=== PATIENT | male | born 1945 | race Caucasian/White ===

== ENCOUNTER 2017-02-17 01:20 | Inpatient (IN) | payer MEDICARE ==
[2017-02-17] VITALS (13 sets, daily range): BP systolic 121–143; BP diastolic 67–97; PULSE 16–102; TEMP 97.3–98.5
[~2017-02-17] VITALS: Ht 172.7 cm; Wt 99.6 kg
[2017-02-18 02:09] VITALS: BP 122/77; PULSE 88; TEMP 97.3
[2017-02-18 06:23] VITALS: BP 135/86; PULSE 101; TEMP 98.3
[2017-02-18 06:41] LABS: HEMATOCRIT 29.4 % (42.0-52.0); HEMOGLOBIN 9.8 g/dl (13.5-18.0)
[2017-02-18 09:40] VITALS: BP 122/83; PULSE 92; TEMP 97.9
[2017-02-18 13:41] VITALS: BP 133/79; PULSE 102
[2017-02-18 17:52] VITALS: BP 128/83; PULSE 92; TEMP 98.3
[2017-02-18 21:39] VITALS: BP 147/88; PULSE 89; TEMP 98.1
[2017-02-19 01:47] VITALS: BP 121/81; PULSE 84; TEMP 98.7
[2017-02-19 05:58] VITALS: BP 125/82; PULSE 85; TEMP 97.9
[2017-02-19 07:33] LABS: HEMATOCRIT 31.2 % (42.0-52.0); HEMOGLOBIN 10.4 g/dl (13.5-18.0)
[2017-02-19 09:27] VITALS: BP 128/84; PULSE 92; TEMP 97.6
[2017-02-19 10:15] VITALS: BP 128/84; PULSE 92; TEMP 97.6
== END 2017-02-19 11:00 | disposition swing bed (61) | DRG 921 ==
LOC: SURG 01:20 → JCC 02:21
PROVIDERS: Orthopaedic Surgery Sports Medicine
PROC: 0HQKXZZ Repair Right Lower Leg Skin, External Approach (ICD-10-PCS; 2017-02-17)
PROC: 0HCKXZZ Extirpation of Matter from Right Lower Leg Skin, External Approach (ICD-10-PCS; principal; 2017-02-17 09:00)
DX: T81.31XA Disruption of external operation (surgical) wound, not elsewhere classified, initial encounter (principal)
CPT/HCPCS: A9284; J0690; J1885; J2405; J2704; J2765; J3010; J7120

== ENCOUNTER → 2018-03-22 | Outpatient (CLI) | payer MEDICARE | LOC: COL.LAB 10:26 | DX: Z96.641 Presence of right artificial hip joint (principal) ==